=== PATIENT | male | born 1980 | race Caucasian/White ===

== ENCOUNTER 2017-08-07 23:18 | Emergency (ER) | payer OTHER ==
[~2017-08-07] VITALS: Ht 175.3 cm; Wt 97.5 kg
[2017-08-07 23:25] VITALS: BP 136/97
[2017-08-07] MEDS ORDERED: BENADRYL IM STA ×2 (23:33→23:42)
[2017-08-07] MEDS ORDERED: BENADRYL ONE (23:33)
--- NOTE | 2017-08-07 23:37 | ER.PDOC ---
General Chief Complaint: Requesting Medical Care Stated Complaint: RASH Time seen by MD: 23:22 Source: patient Exam Limitations: no limitations History of Present Illness Initial Comments Pt developed an urticarial rash starting on thighs and then radiating to entire body Timing/Duration: 1 week Severity: moderate Location: generalized Quality: itchy Identified Cause: no Constitutional: no symptoms reported EENTM: no symptoms reported Respiratory: no symptoms reported Cardiovascular: no symptoms reported Gastrointestinal: no symptoms reported Genitourinary: no symptoms reported Musculoskeletal: no symptoms reported Skin: see HPI, rash (urticarial, erythematous, raised and very itchy) Psychiatric/Neurological: no symptoms reported Endocrine: no symptoms reported Hematologic/Lymphatic: no symptoms reported Physical Exam General Appearance: alert, no distress Skin: warm/dry, nml color, skin rash Location: generalized Character: asymmetric, maculopapular, erythematous Extremities: non-tender, nml ROM, no edema EENT: eyes nml inspection, lips/gums nml, pharynx nml Neck: trachea midline, no swelling Respiratory: no resp. distress, breath sounds nml CVS: reg. rate & rhythm, heart sounds nml Abdomen: non-tender, no organomegaly Rectal: non-tender NEURO/PSYCH: oriented x 3, CN's nml as tested, motor nml, sensation nml, mood/ affect nml Departure Time of Disposition: 23:38 Disposition: 01 HOME, SELF-CARE Impression: Primary Impression: Urticaria of unknown origin Condition: Stable Patient Instructions: Allergies, Generic Referrals: PCP,UNKNOWN (PCP) PRIMARY CARE PROVIDER Duration or Time Spent with Pa: 10 ISABEL CALLE MD Aug 07, 2017 23:37
[2017-08-07 23:58] VITALS: BP 136/97
== END 2017-08-07 23:46 | disposition home or self-care (01) ==
LOC: ER 23:18
DX: L50.9 Urticaria, unspecified (principal)
CPT/HCPCS: 96372; 99283; J1200